=== PATIENT | female | born 2000 | race Two or more races ===

== ENCOUNTER 2019-08-03 19:57 | Emergency (ER) | payer SELFPAY ==
[2019-08-03 20:19] VITALS: BP 125/71
--- NOTE | 2019-08-03 21:02 | UC ---
Minor Trauma HPI - HPI Summary HPI Summary: 18-year-old female presents with complaints of head injury, left shoulder injury , and right hip injury after accidentally falling off a horse at approximately 1900 today. Patient states she struck the right side of her head. She was wearing a helmet. Denies loss of consciousness. Has full recollection of the events immediately before and after the incident. Complains of mild headache and some difficulty concentrating. Patient also reports some anterior left shoulder pain that worsens especially with abduction of the shoulder and some right lateral hip pain. States she has been able to walk and bear weight without difficulty. Denies visual disturbances, photophobia, phonophobia, dizziness, slurred or difficulty speaking, weakness, numbness, tingling of the extremities, neck pain, chest pain, shortness of breath, abdominal pain, nausea , vomiting, or any other injury. - History of Current Complaint Chief Complaint: UCHeadInjury Stated Complaint: HEAD INJURY Hx Obtained From: Patient Hx Last Menstrual Period: Now Pain Intensity: 4 - Allergies/Home Medications Allergies/Adverse Reactions: Allergies Allergy/AdvReac Type Severity Reaction Status Date / Time No Known Allergies Allergy Verified 08/03/19 20:19 Home Medications: Home Medications NK [No Home Medications Reported] 08/03/19 [History Confirmed 08/03/19] PMH/Surg Hx/FS Hx/Imm Hx Previously Healthy: Yes - Denies significant PMH - Surgical History Surgical History: None - Family History Known Family History: Positive: Non-Contributory - Social History Occupation: Student Lives: Dormitory/Roommates Alcohol Use: None Substance Use Type: None Smoking Status (MU): Never Smoked Tobacco Review of Systems All Other Systems Reviewed And Are Negative: Yes Constitutional: Positive: Negative Skin: Positive: Bruising Eyes: Negative: Blurred Vision, Diplopia, Photophobia ENT: Negative: Epistaxis, Dental Pain, Other - jaw pain, trismus Respiratory: Positive: Negative Cardiovascular: Positive: Negative Gastrointestinal: Positive: Negative Genitourinary: Positive: Negative Motor: Negative: Weakness Neurovascular: Negative: Decreased Sensation Musculoskeletal: Positive: Other: - See HPI Neurological: Positive: Headache. Negative: Weakness, Paresthesia, Numbness Is Patient Immunocompromised?: No Physical Exam - Summary Physical Exam Summary: GENERAL APPEARANCE: Well developed, well nourished, alert and cooperative, and appears to be in no acute distress. HEAD: Normocephalic. Patient has superficial abrasion, ecchymosis, and mild edema right cheek below the eye. Mild tenderness without gross deformity or crepitus. EYES: Conjunctiva clear. No drainage. PERRL, EOM intact. Vision is grossly intact. EARS: External auditory canals and tympanic membranes clear, hearing grossly intact. NOSE: No nasal discharge. THROAT: Pharynx normal. No tonsilar inflammation, swelling, exudate, or lesions. Uvula midline. Oral cavity normal. Teeth and gingiva in good general condition. No trismus. TMJ smooth and nontender without clicks or catches. NECK: Neck supple and non-tender. Full painless ROM. CARDIAC: Normal S1 and S2. No S3, S4 or murmurs. Rhythm is regular. There is no peripheral edema, cyanosis or pallor. Extremities are warm and well perfused. Capillary refill is less than 2 seconds. Peripheral pulses intact. CHEST/LUNGS: Chest wall nontender. Lungs clear to auscultation without rales, rhonchi, wheezing or diminished breath sounds. ABDOMEN: Positive bowel sounds. Soft, nondistended, nontender. No guarding or rebound. No masses or hepatosplenomegally. MUSKULOSKELETAL: Normal muscular development. Normal gait. BACK: No spinal deformity or tenderness, decreased range of motion or muscular spasm. EXTREMITIES: Tenderness to the left anterior shoulder over the AC joint without gross deformity, ecchymosis, or edema. Full ROM although pain with abduction of the shoulder. Circulation and sensation intact. Tenderness of the superior iliac crest of the right hip. No gross deformity, ecchymosis, or edema. Full ROM. Circulation and sensation intact. NEUROLOGICAL: CN II-XII intact. Strength and sensation symmetric and intact throughout. Cerebellar testing normal. SKIN: Skin normal color, texture and turgor. Triage Information Reviewed: Yes Vital Signs: Initial Vital Signs Temp 99.6 F 08/03/19 20:11 Pulse 96 08/03/19 20:11 Resp 14 08/03/19 20:11 BP 125/71 08/03/19 20:11 Pulse Ox 100 08/03/19 20:11 Vital Signs Reviewed: Yes Images Head: 1 - Superficial abrasions, mild ecchymosis, mild edema Diagnostics - Radiology No standard instances Radiology Interpretation Completed By: ED Physician - No fracture or dislocation. Minor Trauma Course/Dx - Course Course Of Treatment: 18-year-old female presents with complaints of head injury, left shoulder injury , and right hip injury after accidentally falling off a horse at approximately 1900 today. Patient states she struck the right side of her head. She was wearing a helmet. Denies loss of consciousness. Has full recollection of the events immediately before and after the incident. Complains of mild headache and some difficulty concentrating. Patient also reports some anterior left shoulder pain that worsens especially with abduction of the shoulder and some right lateral hip pain. States she has been able to walk and bear weight without difficulty. Denies visual disturbances, photophobia, phonophobia, dizziness, slurred or difficulty speaking, weakness, numbness, tingling of the extremities, neck pain, chest pain, shortness of breath, abdominal pain, nausea , vomiting, or any other injury. - Differential Dx/Diagnosis Differential Diagnosis/HQI/PQRI: Abrasion(s), Contusion(s), Fracture, Dislocation, Sprain, Strain, Other - concussion, intracranial bleed, cerebral contusion Provider Diagnosis: Concussion without loss of consciousness, Injury of left shoulder, Contusion of right hip Discharge ED - Sign-Out/Discharge Documenting (check all that apply): Patient Departure All imaging exams completed and their final reports reviewed: No - Discharge Plan Condition: Stable Patient Education Materials: Concussion (ED), Contusion in Adults (ED), Shoulder Sprain (ED) Forms: *School Release Referrals: No Primary Care Phys,NOPCP [Primary Care Provider] - Additional Instructions: Your history and exam are consistent with a mild concussion without loss of consciousness. The most important thing you can do to recover from a concussion is to rest. You should avoid activities that require concentration if you are having symptoms. It is also important to avoid all screens including computers, cell phones, and television if you are having symptoms. The x-rays performed in the clinic today showed no evidence of a fracture. Rest the shoulder as much as possible. You should do some gentle range of motion exercises every couple of hours while awake to prevent the shoulder from freezing up. Apply ice to the affected area(s) for 15-20 minutes at least 4 times a day to help with the pain and swelling. Take acetaminophen (Tylenol) or ibuprofen (Advil, Motrin) according to directions as needed for pain. Follow up with the [facility] in 5-7 days if symptoms do not improve. Seek immediate medical attention if you have a severe headache, visual disturbances, one pupil is larger than the other, confusion, seizure-like activity, loss of consciousness, weakness, numbness, or tingling in your arms or legs, persistent dizziness, persistent vomiting, severe pain not managed with pain medication, uterus function of the arm, you are unable to walk or bear any weight, or have any worsening of symptoms. - Billing Disposition and Condition Condition: STABLE
--- NOTE | 2019-08-04 17:02 | UC ---
- Progress Note Progress Note: RADIOLOGY REPORTS REVIEWED. NO EVIDENCE FOR FRACTURE. NO CHANGE IN MANAGEMENT. Course/Dx - Diagnoses Provider Diagnoses: Concussion without loss of consciousness, Injury of left shoulder, Contusion of right hip Discharge ED - Sign-Out/Discharge Documenting (check all that apply): Post-Discharge Follow Up All imaging exams completed and their final reports reviewed: Yes - Discharge Plan Condition: Stable Disposition: HOME Patient Education Materials: Concussion (ED), Contusion in Adults (ED), Shoulder Sprain (ED) Forms: *School Release Referrals: No Primary Care Phys,NOPCP [Primary Care Provider] - Additional Instructions: Your history and exam are consistent with a mild concussion without loss of consciousness. The most important thing you can do to recover from a concussion is to rest. You should avoid activities that require concentration if you are having symptoms. It is also important to avoid all screens including computers, cell phones, and television if you are having symptoms. The x-rays performed in the clinic today showed no evidence of a fracture. Rest the shoulder as much as possible. You should do some gentle range of motion exercises every couple of hours while awake to prevent the shoulder from freezing up. Apply ice to the affected area(s) for 15-20 minutes at least 4 times a day to help with the pain and swelling. Take acetaminophen (Tylenol) or ibuprofen (Advil, Motrin) according to directions as needed for pain. Follow up with the [facility] in 5-7 days if symptoms do not improve. Seek immediate medical attention if you have a severe headache, visual disturbances, one pupil is larger than the other, confusion, seizure-like activity, loss of consciousness, weakness, numbness, or tingling in your arms or legs, persistent dizziness, persistent vomiting, severe pain not managed with pain medication, uterus function of the arm, you are unable to walk or bear any weight, or have any worsening of symptoms. - Billing Disposition and Condition Condition: STABLE Disposition: Home
== END 2019-08-03 22:05 | disposition home or self-care (01) ==
LOC: UCEAST 19:57
DX: S06.0X0A Concussion without loss of consciousness, initial encounter (principal); S49.92XA Unspecified injury of left shoulder and upper arm, initial encounter; S70.01XA Contusion of right hip, initial encounter; V80.010A Animal-rider injured by fall from or being thrown from horse in noncollision accident, initial encounter; Y92.9 Unspecified place or not applicable
CPT/HCPCS: 99202; G0463